=== PATIENT | male | born 1975 ===

== ENCOUNTER 2019-03-17 12:03 | Observation (INO) | payer OTHER ==
--- NOTE | 2019-03-17 12:13 | Event Note ---
ED Screening Note Date of service: 03/17/19 Time: 12:08 ED Screening Note: This is a 44 y.o. M. that presents to the ER with right sided facial numbness for 30 minutes [employer]. PMH of DM2 and HTN Denies headache, slurred speech This initial assessment/diagnostic orders/clinical plan/treatment(s) is/are subject to change based on patients health status, clinical progression and re- assessment by fellow clinical providers in the ED. Further treatment and workup at subsequent clinical providers discretion. Patient/guardian urged not to elope from the ED as their condition may be serious if not clinically assessed and managed. Initial orders include: Labs, ekg, and CT of head
--- NOTE | 2019-03-17 12:46 | Event Note ---
Date of service: 03/17/19 Face to Face: Josafat garcia Dr.: Dr. Karl Bay Past medical history: Diabetes, hypertension, high cholesterol 44-year-old gentleman, not known to this provider previously, presenting with right-sided facial numbness, now resolved, the right side V1, V2, V3 distribution. Symptoms resolved. Patient has GCS of 15. NIH score of 0. Not a TPA candidate as symptoms resolved. Exam at this point time is not consistent with large vessel occlusion. Admission is recommended by neurology for stroke workup. Aspirin ordered. Hospital team to admit patient for TIA workup. Vital Signs 03/17/19 03/17/19 12:09 13:07 Temperature 97.9 F 98.2 F Pulse Rate 83 78 Respiratory 20 17 Rate Blood Pressure 179/114 Blood Pressure 179/101 [Left] O2 Sat by Pulse 98 100 Oximetry
[2019-03-17 12:53] LABS: Basophils # (Auto) 0.1 K/mm3 (0.0-0.1); Basophils % (Auto) 1.2 % (0.0-1.8); Eosinophils # (Auto) 0.1 K/mm3 (0.0-0.4); Eosinophils % (Auto) 1.6 % (0.0-4.3); Hematocrit 49.6 % (35.5-45.6); Hemoglobin 16.9 gm/dl (11.8-15.2); Lymphocytes # (Auto) 2.3 K/mm3 (1.2-5.4); Lymphocytes % (Auto) 35.8 % (13.4-35.0); Mean Corpuscular HGB Conc 34 % (32-34); Mean Corpuscular Volume 85 fl (84-94); Monocytes # (Auto) 0.6 K/mm3 (0.0-0.8); Monocytes % (Auto) 9.1 % (0.0-7.3); Platelet Count 247 K/mm3 (140-440); Red Blood Count 5.83 M/mm3 (3.65-5.03); Red Cell Distribution Width 13.5 % (13.2-15.2)
--- NOTE | 2019-03-17 12:53 | Cat Scan Report ---
CT head/brain wo con INDICATION / CLINICAL INFORMATION: 44 years Male; MAIN: CODE STROKE #[id number] RT SIDE DROOP neuro de ficits <6hrs or sx present upon awakening. TECHNIQUE: Routine CT head without contrast. All CT scans at this location are performed using CT dos e reduction for ALARA by means of automated exposure control. COMPARISON: None. FINDINGS: BRAIN / INTRACRANIAL CONTENTS: No acute hemorrhage, mass effect, midline shift, hydrocephalus, or acu te, large territorial infarct. No chronic infarct or focal atrophy. No significant white matter abnor mality. CRANIOCERVICAL JUNCTION: No significant abnormality. ORBITS: No significant abnormality of visualized orbits. SINUSES / MASTOIDS: There is mucosal thickening in the left maxillary antrum. ADDITIONAL FINDINGS: None. IMPRESSION: 1. No focal mass, hemorrhage, hydrocephalus, or acute, large territorial infarct. This exam was performed as part of a code stroke protocol. The exam was completed on 03/17/2019 1127 AM. The exam was reviewed at 11:40 AM and nurse practitioner Narinder was notified at 11:45 AM. Signer Name: Jc Painting MD, III Signed: 03/17/2019 12:48 PM Workstation Name: [email or web address]
--- NOTE | 2019-03-17 12:54 | Emergency Department Report ---
ED Neuro Deficit HPI - General Chief Complaint: Neuro Symptoms/Deficit Stated Complaint: FACIAL NUMBNESS Time Seen by Provider: 03/17/19 12:07 Source: patient Mode of arrival: Ambulatory Limitations: No Limitations - History of Present Illness Initial Comments: [facility] Date of Service: 03/17/2019 12:17:14 Impression: RO Acute Ischemic Stroke TIA Comments: Patient reports now that his symptoms are nearly resolved, and reports no sensory loss on the exam. This is likely TIA, with differential diagnosis of small cortical infarct. Patient will need to be admitted for further care, and stroke work up as recommended below. Metrics: Last Known Well: 03/17/2019 11:23:43 [facility] Notification Time: 03/17/2019 12:16:34 Arrival Time: 03/17/2019 12:05:00 Stamp Time: 03/17/2019 12:17:14 Time First Login Attempt: 03/17/2019 12:22:00 Video Start Time: 03/17/2019 12:22:00 Symptoms: RIght face numness abot one hour before arrival NIHSS Start Assessment Time: 03/17/2019 12:25:00 Patient is not a candidate for tPA. Patient was not deemed candidate for tPA thrombolytics because of Symptoms resolved. . Video End Time: 03/17/2019 12:32:02 CT head showed no acute hemorrhage or acute core infarct. Advanced imaging was not obtained as the presentation was not suggestive of Large Vessel Occlusive Disease. ER physician notified of the decision on thrombolytics management. Our recommendations are outlined below. Recommendations: Antiplatelet Therapy Recommended Recommended Scan: MRI Head MRA Head Without Contrast Carotid Dopplers Echocardiogram - Transthoracic Echocardiogram Lipid Panel to Be Obtained, if Not Done in the Last Three Months DVT prophylaxis: SCDs, Pneumatic Compression Disposition: Follow up with Teleneurology Follow up Sign Out: Discussed with Emergency Department Provider History of Present Illness: Patient is a 44 years old Male. Patient was brought by private transportation with symptoms of RIght face numness abot one hour before arrival Patient presents with symptoms of right facial numbness which occurred about one hour before the presentation. He was brought here by private vehicle. He denies any other associated symptoms. He was asymptomatic before this and these are new symptoms for him. History of HTN, and Diabetes Mellitus. CT head showed no acute hemorrhage or acute core infarct. Last seen normal was within 4.5 hours. There is no history of hemorrhagic complications or intracranial hemorrhage. There is no history of Recent Anticoagulants. There is no history of recent major surgery. There is no history of recent stroke. Examination: 1A: Level of Consciousness - Alert; keenly responsive + 0 1B: Ask Month and Age - Both Questions Right + 0 1C: Blink Eyes & Squeeze Hands - Performs Both Tasks + 0 2: Test Horizontal Extraocular Movements - Normal + 0 3: Test Visual Ahmadi - No Visual Loss + 0 4: Test Facial Palsy (Use Grimace if Obtunded) - Normal symmetry + 0 5A: Test Left Arm Motor Drift - No Drift for 10 Seconds + 0 5B: Test Right Arm Motor Drift - No Drift for 10 Seconds + 0 6A: Test Left Leg Motor Drift - No Drift for 5 Seconds + 0 6B: Test Right Leg Motor Drift - No Drift for 5 Seconds + 0 7: Test Limb Ataxia (FNF/Heel-Lu) - No Ataxia + 0 8: Test Sensation - Normal; No sensory loss + 0 9: Test Language/Aphasia - Normal; No aphasia + 0 10: Test Dysarthria - Normal + 0 11: Test Extinction/Inattention - No abnormality + 0 NIHSS Score: 0 Patient was informed the Neurology Consult would happen via TeleHealth consult by way of interactive audio and video telecommunications and consented to receiving care in this manner. Due to the immediate potential for life-threatening deterioration due to underlying acute neurologic illness, I spent 35 minutes providing critical care. This time includes time for face to face visit via telemedicine, review of medical records, imaging studies and discussion of findings with providers, the patient and/or family. Dr Davy Savage [facility] - Related Data Allergies/Adverse Reactions: Allergies Allergy/AdvReac Type Severity Reaction Status Date / Time No Known Allergies Allergy Unverified 03/17/19 12:04 ED Review of Systems ROS: Stated complaint: FACIAL NUMBNESS Other details as noted in HPI ED Past Medical Hx - Past Medical History Hx Hypertension: Yes Hx Diabetes: Yes - Surgical History Past Surgical History?: No - Social History Smoking Status: Never Smoker Substance Use Type: None ED Neuro Physical Exam - General Limitations: No Limitations Suspected Stroke: Yes - NIHSS Assessment Interval: Baseline 1a. Level of Consciousness: alert/keenly responsive 1b. LOC Questions: answers both correctly 1c. LOC Commands: performs tasks correctly 2. Best Gaze: normal 3. Visual: no visual loss 4. Facial Palsy: normal symmetrical movement 5b. Motor Arm Right: no drift 5a. Motor Arm Left: no drift 6a. Motor Leg Left: no drift 6b. Motor Leg Right: no drift 7. Limb Ataxia: absent 8. Sensory: normal 9. Best Language: no aphasia 10. Dysarthria: normal 11. Extinction/Inattention: no abnormality Total Score: 0 Stroke Severity: No Stroke Symptoms ED Course Vital Signs 03/17/19 12:09 Temperature 97.9 F Pulse Rate 83 Respiratory 20 Rate Blood Pressure 179/114 O2 Sat by Pulse 98 Oximetry - Lab Data Lab Results 03/17/19 03/17/19 Range/Units 12:16 12:34 POC Glucose 284 H 285 H (70-105) Critical care attestation.: If time is entered above; I have spent that time in minutes in the direct care of this critically ill patient, excluding procedure time. ED Disposition Clinical Impression: Stroke Disposition: DC/TX-02 [id number]-TRM GEN HOSP IP Is pt being admited?: Yes Condition: Stable
[2019-03-17 13:08] LABS: INR 0.88 (0.87-1.13); Partial Thromboplastin Time 26.4 Sec. (24.2-36.6)
--- NOTE | 2019-03-17 13:09 | Emergency Department Report ---
ED Neuro Deficit HPI - General Chief Complaint: Neuro Symptoms/Deficit Stated Complaint: FACIAL NUMBNESS Time Seen by Provider: 03/17/19 12:07 Source: patient Mode of arrival: Ambulatory Limitations: No Limitations - History of Present Illness Initial Comments: 44-year-old female presents to the emergency room complaining of right sided facial numbness with blurred vision. Patient states this happened about 20 minutes prior to arrival [facility] was [facility]. Patient does report a past medical history of hypertension, diabetes, hypercholesterolemia and reported CVA in the past. Patient reports he is compliant and off medications. Patient reports he is followed by Dr. Karl Bay internal medicine provider. Patient reports she is not on aspirin and is not on cholesterol medication. Onset/Timin -: minutes(s) Location: right face (drooping and tingling which he reports has resolved) Presenting Symptoms: Present: Facial Droop/Numbness (right side). Absent: Weak/Paralyzed One Side, Altered Mental Status History of same: No Place: other ([facility]) Severity: mild Quality: numb, tingling Improves With: time Worsens With: none On Anticoagulants: No Context: sudden onset Associated Symptoms: denies: confusion, chest pain, cough, diaphoresis, fever/chills, headaches, loss of appetite, malise, nausea/vomiting, vertigo, seizures, shortness of breath, syncope, weakness Treatments Prior to Arrival: none - Related Data Home Medications: Home Medications Medication Instructions Recorded Confirmed Last Taken Aspirin [Aspirin BABY CHEW TAB] 81 mg PO DAILY 03/17/19 03/17/19 03/17/19 Previous Rx's Medication Instructions Recorded Last Taken Type AtorvaSTATin [Lipitor] 40 mg PO QHS #30 tablet 03/18/19 Unknown Rx Lisinopril [Zestril TAB] 5 mg PO QDAY #30 03/18/19 Unknown Rx glipiZIDE [Glucotrol] 5 mg PO BIDAC #60 tablet 03/18/19 Unknown Rx metFORMIN [Glucophage] 500 mg PO BID #60 03/18/19 Unknown Rx predniSONE [Deltasone] 80 mg PO QDAY #40 tab 03/18/19 Unknown Rx valACYclovir [Valtrex] 500 mg PO TID #30 tab 03/18/19 Unknown Rx Allergies/Adverse Reactions: Allergies Allergy/AdvReac Type Severity Reaction Status Date / Time No Known Allergies Allergy Unverified 03/17/19 12:04 ED Review of Systems ROS: Stated complaint: FACIAL NUMBNESS Other details as noted in HPI Comment: All other systems reviewed and negative ED Past Medical Hx - Past Medical History Hx Hypertension: Yes Hx Diabetes: Yes Additional medical history: Hypercholesterolemia - Surgical History Past Surgical History?: No - Social History Smoking Status: Never Smoker Substance Use Type: None - Medications Home Medications: Home Medications Medication Instructions Recorded Confirmed Last Taken Type Aspirin [Aspirin BABY CHEW TAB] 81 mg PO DAILY 03/17/19 03/17/19 03/17/19 History AtorvaSTATin [Lipitor] 40 mg PO QHS #30 tablet 03/18/19 Unknown Rx Lisinopril [Zestril TAB] 5 mg PO QDAY #30 03/18/19 Unknown Rx glipiZIDE [Glucotrol] 5 mg PO BIDAC #60 tablet 03/18/19 Unknown Rx metFORMIN [Glucophage] 500 mg PO BID #60 03/18/19 Unknown Rx predniSONE [Deltasone] 80 mg PO QDAY #40 tab 03/18/19 Unknown Rx valACYclovir [Valtrex] 500 mg PO TID #30 tab 03/18/19 Unknown Rx ED Neuro Physical Exam - General Limitations: No Limitations General appearance: alert, in no apparent distress Suspected Stroke: Yes - Head Head exam: Present: atraumatic, normocephalic - Eye Eye exam: Present: PERRL, EOMI - ENT ENT exam: Present: mucous membranes moist - Neck Neck exam: Present: normal inspection - Respiratory Respiratory exam: Present: normal lung sounds bilaterally. Absent: respiratory distress - Cardiovascular Cardiovascular Exam: Present: regular rate, normal rhythm. Absent: systolic murmur, diastolic murmur, rubs, gallop - GI/Abdominal GI/Abdominal exam: Present: soft, normal bowel sounds - Back Exam Back exam: Present: normal inspection, full ROM. Absent: tenderness - Neurological Exam Neurological exam: Present: alert, oriented X3 - NIHSS 1a. Level of Consciousness: alert/keenly responsive 1b. LOC Questions: answers both correctly 1c. LOC Commands: performs tasks correctly 2. Best Gaze: normal 3. Visual: no visual loss 4. Facial Palsy: normal symmetrical movement 5b. Motor Arm Right: no drift 5a. Motor Arm Left: no drift 6a. Motor Leg Left: no drift 6b. Motor Leg Right: no drift 7. Limb Ataxia: absent 8. Sensory: normal 9. Best Language: no aphasia 10. Dysarthria: normal 11. Extinction/Inattention: no abnormality Total Score: 0 Stroke Severity: No Stroke Symptoms - Psychiatric Psychiatric exam: Present: normal affect, normal mood - Skin Skin exam: Present: warm, dry, intact, normal color. Absent: rash ED Course Vital Signs 03/17/19 03/17/19 03/17/19 12:09 12:24 12:31 Temperature 97.9 F Pulse Rate 83 81 86 Respiratory 20 25 H Rate Blood Pressure 179/114 Blood Pressure [Left] O2 Sat by Pulse 98 Oximetry 03/17/19 03/17/19 03/17/19 12:45 13:01 13:07 Temperature 98.2 F Pulse Rate 78 72 78 Respiratory 13 19 17 Rate Blood Pressure Blood Pressure 179/101 [Left] O2 Sat by Pulse 100 98 100 Oximetry 03/17/19 03/17/19 03/17/19 13:15 13:31 13:45 Temperature Pulse Rate 74 73 75 Respiratory 18 19 18 Rate Blood Pressure Blood Pressure [Left] O2 Sat by Pulse 99 100 99 Oximetry 03/17/19 03/17/19 03/17/19 14:01 14:15 14:31 Temperature Pulse Rate 70 77 78 Respiratory 12 10 L 13 Rate Blood Pressure Blood Pressure [Left] O2 Sat by Pulse 98 99 97 Oximetry 03/17/19 03/17/19 03/17/19 14:41 14:51 15:01 Temperature Pulse Rate 74 76 72 Respiratory 13 13 8 L Rate Blood Pressure Blood Pressure [Left] O2 Sat by Pulse 99 98 98 Oximetry 03/17/19 03/17/19 03/17/19 15:11 15:21 15:31 Temperature Pulse Rate 75 74 76 Respiratory 13 9 L 14 Rate Blood Pressure Blood Pressure [Left] O2 Sat by Pulse 97 100 98 Oximetry 03/17/19 03/17/19 03/17/19 15:41 15:51 16:01 Temperature Pulse Rate 72 78 70 Respiratory 21 13 13 Rate Blood Pressure Blood Pressure [Left] O2 Sat by Pulse 98 98 97 Oximetry 03/17/19 03/17/19 03/17/19 16:11 16:21 16:31 Temperature Pulse Rate 72 70 71 Respiratory 18 16 16 Rate Blood Pressure Blood Pressure [Left] O2 Sat by Pulse 98 98 95 Oximetry 03/17/19 03/17/19 03/17/19 16:40 16:51 17:01 Temperature Pulse Rate 83 82 76 Respiratory 15 17 11 L Rate Blood Pressure Blood Pressure [Left] O2 Sat by Pulse 98 98 96 Oximetry 03/17/19 17:11 Temperature Pulse Rate 75 Respiratory 9 L Rate Blood Pressure Blood Pressure [Left] O2 Sat by Pulse 99 Oximetry - Lab Data Result diagrams: 03/17/19 12:38 03/17/19 12:38 Lab Results 03/17/19 03/17/19 03/17/19 Range/Units 12:16 12:34 12:38 WBC 6.5 (4.5-11.0) K/mm3 RBC 5.83 H (3.65-5.03) M/mm3 Hgb 16.9 H (11.8-15.2) gm/dl Hct 49.6 H (35.5-45.6) % MCV 85 (84-94) fl MCH 29 (28-32) pg MCHC 34 (32-34) % RDW 13.5 (13.2-15.2) % Plt Count 247 (140-440) K/mm3 Lymph % (Auto) 35.8 H (13.4-35.0) % Wharton % (Auto) 9.1 H (0.0-7.3) % Eos % (Auto) 1.6 (0.0-4.3) % Baso % (Auto) 1.2 (0.0-1.8) % Lymph # 2.3 (1.2-5.4) K/mm3 Wharton # 0.6 (0.0-0.8) K/mm3 Eos # 0.1 (0.0-0.4) K/mm3 Baso # 0.1 (0.0-0.1) K/mm3 Seg Neutrophils % 52.3 (40.0-70.0) % Seg Neutrophils # 3.4 (1.8-7.7) K/mm3 PT (12.2-14.9) Sec. INR (0.87-1.13) APTT (24.2-36.6) Sec. Thrombin Time (15.1-19.6) Sec. Sodium (137-145) mmol/L Potassium (3.6-5.0) mmol/L Chloride (98-107) mmol/L Carbon Dioxide (22-30) mmol/L Anion Gap mmol/L BUN (9-20) mg/dL Creatinine (0.8-1.5) mg/dL Estimated GFR ml/min BUN/Creatinine Ratio % Glucose (75-100) mg/dL POC Glucose 284 H 285 H (70-105) Calcium (8.4-10.2) mg/dL Troponin T (0.00-0.029) ng/mL Triglycerides (2-149) mg/dL Cholesterol (50-199) mg/dL LDL Cholesterol Direct (50-130) mg/dL HDL Cholesterol (40-59) mg/dL Cholesterol/HDL Ratio % 03/17/19 03/17/19 03/17/19 Range/Units 12:38 12:38 12:38 WBC (4.5-11.0) K/mm3 RBC (3.65-5.03) M/mm3 Hgb (11.8-15.2) gm/dl Hct (35.5-45.6) % MCV (84-94) fl MCH (28-32) pg MCHC (32-34) % RDW (13.2-15.2) % Plt Count (140-440) K/mm3 Lymph % (Auto) (13.4-35.0) % Wharton % (Auto) (0.0-7.3) % Eos % (Auto) (0.0-4.3) % Baso % (Auto) (0.0-1.8) % Lymph # (1.2-5.4) K/mm3 Wharton # (0.0-0.8) K/mm3 Eos # (0.0-0.4) K/mm3 Baso # (0.0-0.1) K/mm3 Seg Neutrophils % (40.0-70.0) % Seg Neutrophils # (1.8-7.7) K/mm3 PT 11.7 L (12.2-14.9) Sec. INR 0.88 (0.87-1.13) APTT 26.4 (24.2-36.6) Sec. Thrombin Time 16.2 (15.1-19.6) Sec. Sodium 137 (137-145) mmol/L Potassium 3.7 (3.6-5.0) mmol/L Chloride 98.1 (98-107) mmol/L Carbon Dioxide 23 (22-30) mmol/L Anion Gap 20 mmol/L BUN 15 (9-20) mg/dL Creatinine 0.7 L (0.8-1.5) mg/dL Estimated GFR > 60 ml/min BUN/Creatinine Ratio 21 % Glucose 281 H (75-100) mg/dL POC Glucose (70-105) Calcium 9.4 (8.4-10.2) mg/dL Troponin T < 0.010 (0.00-0.029) ng/mL Triglycerides (2-149) mg/dL Cholesterol (50-199) mg/dL LDL Cholesterol Direct (50-130) mg/dL HDL Cholesterol (40-59) mg/dL Cholesterol/HDL Ratio % 03/17/ Range/Units 14:23 WBC (4.5-11.0) K/mm3 RBC (3.65-5.03) M/mm3 Hgb (11.8-15.2) gm/dl Hct (35.5-45.6) % MCV (84-94) fl MCH (28-32) pg MCHC (32-34) % RDW (13.2-15.2) % Plt Count (140-440) K/mm3 Lymph % (Auto) (13.4-35.0) % Wharton % (Auto) (0.0-7.3) % Eos % (Auto) (0.0-4.3) % Baso % (Auto) (0.0-1.8) % Lymph # (1.2-5.4) K/mm3 Wharton # (0.0-0.8) K/mm3 Eos # (0.0-0.4) K/mm3 Baso # (0.0-0.1) K/mm3 Seg Neutrophils % (40.0-70.0) % Seg Neutrophils # (1.8-7.7) K/mm3 PT (12.2-14.9) Sec. INR (0.87-1.13) APTT (24.2-36.6) Sec. Thrombin Time (15.1-19.6) Sec. Sodium (137-145) mmol/L Potassium (3.6-5.0) mmol/L Chloride (98-107) mmol/L Carbon Dioxide (22-30) mmol/L Anion Gap mmol/L BUN (9-20) mg/dL Creatinine (0.8-1.5) mg/dL Estimated GFR ml/min BUN/Creatinine Ratio % Glucose (75-100) mg/dL POC Glucose (70-105) Calcium (8.4-10.2) mg/dL Troponin T (0.00-0.029) ng/mL Triglycerides 179 H (2-149) mg/dL Cholesterol 243 H (50-199) mg/dL LDL Cholesterol Direct 178 H (50-130) mg/dL HDL Cholesterol 50 (40-59) mg/dL Cholesterol/HDL Ratio 4.86 % - Radiology Data Radiology results: report reviewed Patient: CAMILA LAZARO MR #: [id number] : 1975 Acct:[id number] Age/Sex: 44 / M ADM Date: 03/17/19 Loc: ED Attending Dr: Ordering Physician: GENESIS RON Date of Service: 03/17/19 Procedure(s): CT head/brain wo con Accession Number(s): [id number] cc: GENESIS RON CT head/brain wo con INDICATION / CLINICAL INFORMATION: 44 years Male; MAIN: CODE STROKE #[id number] RT SIDE DROOP neuro deficits <6hrs or sx present upon awakening. TECHNIQUE: Routine CT head without contrast. All CT scans at this location are performed using CT dose reduction for ALARA by means of automated exposure control. COMPARISON: None. FINDINGS: BRAIN / INTRACRANIAL CONTENTS: No acute hemorrhage, mass effect, midline shift, hydrocephalus, or acute, large territorial infarct. No chronic infarct or focal atrophy. No significant white matter abnormality. CRANIOCERVICAL JUNCTION: No significant abnormality. ORBITS: No significant abnormality of visualized orbits. SINUSES / MASTOIDS: There is mucosal thickening in the left maxillary antrum. ADDITIONAL FINDINGS: None. IMPRESSION: 1. No focal mass, hemorrhage, hydrocephalus, or acute, large territorial infarct. This exam was performed as part of a code stroke protocol. The exam was completed on 03/17/2019 1127 AM. The exam was reviewed at 11:40 AM and nurse practitioner Narinder was notified at 11:45 AM. Signer Name: Jc Painting MD, III Signed: 03/17/2019 12:48 PM Workstation Name: [email or web address] Transcribed By: HR Dictated By: Jc Painting MD Electronically Authenticated By: Jc Painting MD Signed Date/Time: 03/17/198 DD/ TD/TT: - Medical Decision Making 44-year-old female presents to the emergency room complaining of right sided facial numbness with blurred vision. Patient states this happened about 20 minutes prior to arrival [facility]. Patient does report a past medical history of hypertension, diabetes, hypercholesterolemia and reported CVA in the past. Patient reports he is compliant and off medications. Patient reports he is followed by Dr. Karl Bay internal medicine provider. Patient reports she is not on aspirin and is not on cholesterol medication. Spoke with Dr. Savage he called to report normal CT head. He request admission for TIA work. Reports possible small cortical vascular stroke verses TIA. No concerns for large vessel occlusion. Dr. Clarke evaluated patient. Spoke with Dr. Patel hospitalist for admission. - Differential Diagnosis CVA, bells palsy, - Thrombolytic Inclusion/Exclusion Thrombolytic Inclusion Criteria: Ischemic Stroke Onset< 3h, Negative CT Scan for ICH Thrombolytic Contraindications: Rapidily Improving s/s Critical Care Time: Yes Critical care time in (mins) excluding proc time.: 35 Critical care attestation.: If time is entered above; I have spent that time in minutes in the direct care of this critically ill patient, excluding procedure time. ED Disposition Clinical Impression: Stroke Qualifiers: Laterality of affected vessel: unspecified Disposition: DC-09 OP ADMIT IP TO THIS HOSP Is pt being admited?: Yes Does the pt Need Aspirin: Yes Condition: Stable
[2019-03-17] MEDS ORDERED: ASPIRIN 81 MG TAB CHEW PO ONE (13:14)
[2019-03-17 13:36] LABS: BUN/Creatinine Ratio 21; Blood Urea Nitrogen 15 mg/dL (9-20); Calcium 9.4 mg/dL (8.4-10.2); Hemolysis Index 3
--- NOTE | 2019-03-17 14:08 | History and Physical Report ---
History of Present Illness Chief complaint: The right side of my face is numb History of present illness: 44 YO Male with Obesity, HTN, HLD, DM presents to ED for evaluation. Pt states that he was in his usual state of health today wend he experienced sudden onset of Fight facial numbness and blurred vision while attending catholic. Pt presents to ED for evaluation 20minutes after onset of symptoms. A code stroke was c alled, and teleneurology consulted. Pt deemed not to be a candidate for TPA. Pt seen and evaluated in ED and found to have symptoms consistent with TIA/CVA as well as [place] Palsy. Pt placed in Observation status. Neurology consulted. Pt denies fever, chills, CP, palpitations, NVD, Truma, Syncope, Vertigo, Loss of consciousness, Loss of bowel/bladder continence, or seizures. No prior admission for review. No medication listed for reconciliation at time of admission. Past History Past Medical History: other (see hpi) Past Surgical History: No surgical history, Other (reviewed) Social history: , lives with family. denies: smoking, alcohol abuse, prescription drug abuse Family history: diabetes, hypertension Medications and Allergies Allergies Allergy/AdvReac Type Severity Reaction Status Date / Time No Known Allergies Allergy Unverified 03/17/19 12:04 Review of Systems Constitutional: no weight loss, no weight gain, no fever, no chills Eyes: right: blurred vision Ears, nose, mouth and throat: no ear pain, no ear discharge, no tinnitis, no decreased hearing, no nose pain, no nasal congestion Cardiovascular: no chest pain, no orthopnea, no palpitations, no rapid/irregular heart beat, no edema, no syncope Respiratory: no cough, no cough with sputum, no excessive sputum, no hemoptysis, no shortness of breath Gastrointestinal: no nausea, no vomiting, no diarrhea, no constipation Genitourinary Male: no dysuria, no hematuria, no flank pain, no discharge, no urinary frequency, no urinary hesitancy Rectal: no pain, no incontinence, no bleeding Musculoskeletal: no neck stiffness, no neck pain, no shooting arm pain, no arm numbness/tingling, no low back pain, no shooting leg pain, no leg numbness/tingling Integumentary: no rash, no pruritis, no redness, no sores, no wounds Neurological: weakness, numbness, no vertigo, no headaches, no memory loss Psychiatric: no anxiety, no memory loss, no change in sleep habits, no sleep disturbances, no insomnia, no hypersomnia, no change in appetite, no change in libido Endocrine: no cold intolerance, no heat intolerance, no polyphagia, no excessive thirst, no polydipsia, no polyuria, no nocturia, no excessive sweating Hematologic/Lymphatic: no easy bruising, no easy bleeding, no lymphadenopathy, no lymphedema Allergic/Immunologic: no urticaria, no allergic rhinitis, no persistent infections, no anaphylaxis Exam - Constitutional Vitals: Temp Pulse Resp BP Pulse Ox 98.2 F 78 17 179/101 100 03/17/19 13:07 03/17/19 13:07 03/17/19 13:07 03/17/19 13:07 03/17/19 13:07 General appearance: Present: no acute distress, well-nourished - EENT Eyes: Present: PERRL ENT: hearing intact, clear oral mucosa - Neck Neck: Present: supple, normal ROM - Respiratory Respiratory effort: normal Respiratory: bilateral: CTA - Cardiovascular Heart Sounds: Present: S1 & S2. Absent: rub, click - Extremities Extremities: pulses symmetrical, No edema Peripheral Pulses: within normal limits - Abdominal General gastrointestinal: Present: soft, non-tender, non-distended, normal bowel sounds Male genitourinary: Present: normal - Integumentary Integumentary: Present: clear, warm, dry - Musculoskeletal Musculoskeletal: right sided weakness - Psychiatric Psychiatric: appropriate mood/affect, intact judgment & insight - Neurologic Neurologic: CNII-XII intact, moves all extremities Results - Labs CBC & Chem 7: 03/17/19 12:38 03/17/19 12:38 Labs: Abnormal lab results 03/17/19 03/17/19 03/17/19 Range/Units 12:16 12:34 12:38 RBC 5.83 H (3.65-5.03) M/mm3 Hgb 16.9 H (11.8-15.2) gm/dl Hct 49.6 H (35.5-45.6) % Lymph % (Auto) 35.8 H (13.4-35.0) % [place] % (Auto) 9.1 H (0.0-7.3) % PT (12.2-14.9) Sec. Creatinine (0.8-1.5) mg/dL Glucose (75-100) mg/dL POC Glucose 284 H 285 H (70-105) 03/17/19 03/17/19 Range/Units 12:38 12:38 RBC (3.65-5.03) M/mm3 Hgb (11.8-15.2) gm/dl Hct (35.5-45.6) % Lymph % (Auto) (13.4-35.0) % [place] % (Auto) (0.0-7.3) % PT 11.7 L (12.2-14.9) Sec. Creatinine 0.7 L (0.8-1.5) mg/dL Glucose 281 H (75-100) mg/dL POC Glucose (70-105) Assessment and Plan - Patient Problems (1) CVA (cerebral vascular accident) Status: Acute Qualifiers: Laterality of affected vessel: unspecified Plan to address problem: CVA Protocol: Teleneurology consulted by ED staff, CT Head, neuro check, PT/OT/Speech Therapy, lipid panel, statin therapy, antiplatelet therapy, Echo, carotid doppler (2) Tang's palsy Status: Acute Plan to address problem: Oral steroid therapy, supportive care. (3) HTN (hypertension) Status: Acute Qualifiers: Hypertension type: essential hypertension Qualified Code(s): I10 - Essential (primary) hypertension Plan to address problem: monitor bp q shift, supportive care. (4) HLD (hyperlipidemia) Status: Acute Qualifiers: Hyperlipidemia type: mixed hyperlipidemia Qualified Code(s): E78.2 - Mixed hyperlipidemia Plan to address problem: lipid panel, statin therapy, risk factor reduction, low cholesterol diet (5) Diabetes Status: Acute Plan to address problem: ADA diet, insulin sliding scale, accu check, hypoglycemia protocol (6) DVT prophylaxis Status: Acute Plan to address problem: SCD to BLE while in bed, Pt ambulatory
[2019-03-17] MEDS ORDERED: ASPIRIN 325 MG TAB PO ONE (14:36)
[2019-03-17 15:00] LABS: Chol/HDL Ratio 4.86 %
[2019-03-17] MEDS ORDERED: METOCLOPRAMIDE 10 MG TAB PO PRN (15:16)
[2019-03-17] MEDS ORDERED: ONDANSETRON 4 MG/2 ML INJ IV PRN (15:16)
[2019-03-17] MEDS ORDERED: MAGNESIUM HYDROXIDE (MOM) ORAL LIQD UDC PO PRN (15:16)
[2019-03-17] MEDS ORDERED: ALBUTEROL 2.5 MG/3 ML NEBU IH PRN (15:16)
[2019-03-17] MEDS ORDERED: BISACODYL 10 MG RECT SUPP PR PRN (15:16)
[2019-03-17] MEDS ORDERED: ACETAMINOPHEN 325 MG TAB PO PRN (15:16)
[2019-03-17] MEDS ORDERED: PROMETHAZINE 25 MG RECT SUPP PR PRN (15:16)
[2019-03-17] MEDS ORDERED: DEXTROSE 50% IN WATER (25GM) 50 ML SYRINGE IV PRN (15:20)
[2019-03-17] MEDS ORDERED: methylPREDNISolone Sod Succinate 40 MG/1 ML INJ ONE (16:34)
[2019-03-17] MEDS: methylPREDNISolone Sod Succinate 40 MG/1 ML INJ IV SCH (16:44)
[2019-03-17] MEDS: INSULIN LISPRO 100 UNIT/ML SUB-Q SCH (18:44)
[2019-03-18] MEDS: INSULIN LISPRO 100 UNIT/ML SUB-Q SCH ×2 (00:21→07:54)
[2019-03-18] MEDS ORDERED: LISINOPRIL 5 MG TAB PO SCH (10:00)
[2019-03-18] MEDS ORDERED: ASPIRIN 325 MG TAB PO SCH (10:00)
[2019-03-18] MEDS ORDERED: ASPIRIN 81 MG TAB CHEW PO SCH (10:00)
--- NOTE | 2019-03-18 10:31 | Progress Note ---
Assessment and Plan Assessment and plan: There [id number] man who presents to the hospital right-sided facial numbness which resolved after 30 minutes with no specific intervention. Past medical history; hypertension, diabetes, hyperlipidemia and history of previous CVA CT head no acute findings Right facial numbness x30 minutes Possible TIA? Telemetry neurology input appreciated, they recommend MRI MRA head, carotid Dopplers and echo. Lipid panel. Acute CVA , neurology consult pending Allow permissive hypertension, has received aspirin, stroke education, observe for arrhythmia on telemetry --aspirin and high dose statin, lipid panel shows total cholesterol of 243, triglycerides of 179 and LDL of 178. Lipids uncontrolled, put on high-dose statin Diabetes with persistent hyperglycemia Consistent carbohydrate diet, sliding scale insulin, check A1c, add basal insulin, continue metformin Hypertension, hyperlipidemia Optimize meds DVT prophylaxis, SCDs, early ambulation History Interval history: Review of systems Constitutional: No fevers, no malaise, no joint pains CVS: No chest pain, no orthopnea, no pedal edema GI: No abdominal pain, no diarrhea, no vomiting, no constipation Respiratory: No shortness of breath, no wheezing, no coughing Hospitalist Physical - Physical exam Narrative exam: General.: Appears well, no distress, nontoxic HEENT: Moist mucous membranes, extraocular muscles intact, no lymphadenopathy Neck: supple Cardiac: S1-S2 heard Lungs: clear to auscultation bilaterally Abdomen: soft , nontender, nondistended, bowel sounds positive Extremities: no edema clubbing or cyanosis Skin: no rash or lesions Neurologic: no gross focal deficits Psych: calm, and cooperative - Constitutional Vitals: Temp Pulse Resp BP Pulse Ox 97.9 F 77 18 113/85 97 03/18/19 06:00 03/18/19 06:00 03/18/19 06:00 03/18/19 06:00 03/18/19 08:39 General appearance: Present: no acute distress, well-nourished Results - Labs CBC & Chem 7: 03/17/19 12:38 03/17/19 12:38 Labs: Laboratory Last Values WBC 6.5 K/mm3 (4.5-11.0) 03/17/19 12:38 RBC 5.83 M/mm3 (3.65-5.03) H 03/17/19 12:38 Hgb 16.9 gm/dl (11.8-15.2) H 03/17/19 12:38 Hct 49.6 % (35.5-45.6) H 03/17/19 12:38 MCV 85 fl (84-94) 03/17/19 12:38 MCH 29 pg (28-32) 03/17/19 12:38 MCHC 34 % (32-34) 03/17/19 12:38 RDW 13.5 % (13.2-15.2) 03/17/19 12:38 Plt Count 247 K/mm3 (140-440) 03/17/19 12:38 Lymph % (Auto) 35.8 % (13.4-35.0) H 03/17/19 12:38 [place] % (Auto) 9.1 % (0.0-7.3) H 03/17/19 12:38 Eos % (Auto) 1.6 % (0.0-4.3) 03/17/19 12:38 Baso % (Auto) 1.2 % (0.0-1.8) 03/17/19 12:38 Lymph # 2.3 K/mm3 (1.2-5.4) 03/17/19 12:38 Alexander # 0.6 K/mm3 (0.0-0.8) 03/17/19 12:38 Eos # 0.1 K/mm3 (0.0-0.4) 03/17/19 12:38 Baso # 0.1 K/mm3 (0.0-0.1) 03/17/19 12:38 Seg Neutrophils % 52.3 % (40.0-70.0) 03/17/19 12:38 Seg Neutrophils # 3.4 K/mm3 (1.8-7.7) 03/17/19 12:38 PT 11.7 Sec. (12.2-14.9) L 03/17/19 12:38 INR 0.88 (0.87-1.13) 03/17/19 12:38 APTT 26.4 Sec. (24.2-36.6) 03/17/19 12:38 Thrombin Time 16.2 Sec. (15.1-19.6) 03/17/19 12:38 Sodium 137 mmol/L (137-145) 03/17/19 12:38 Potassium 3.7 mmol/L (3.6-5.0) 03/17/19 12:38 Chloride 98.1 mmol/L (98-107) 03/17/19 12:38 Carbon Dioxide 23 mmol/L (22-30) 03/17/19 12:38 Anion Gap 20 mmol/L 03/17/19 12:38 BUN 15 mg/dL (9-20) 03/17/19 12:38 Creatinine 0.7 mg/dL (0.8-1.5) L 03/17/19 12:38 Estimated GFR > 60 ml/min 03/17/19 12:38 BUN/Creatinine Ratio 21 % 03/17/19 12:38 Glucose 281 mg/dL (75-100) H 03/17/19 12:38 POC Glucose 234 (70-105) H 03/18/19 06:11 Calcium 9.4 mg/dL (8.4-10.2) 03/17/19 12:38 Troponin T < 0.010 ng/mL (0.00-0.029) 03/17/19 12:38 Triglycerides 179 mg/dL (2-149) H 03/17/19 14:23 Cholesterol 243 mg/dL (50-199) H 03/17/19 14:23 LDL Cholesterol Direct 178 mg/dL (50-130) H 03/17/19 14:23 HDL Cholesterol 50 mg/dL (40-59) 03/17/19 14:23 Cholesterol/HDL Ratio 4.86 % 03/17/19 14:23 Active Medications - Current Medications Current Medications: Generic Name Dose Route Start Last Admin Trade Name Freq PRN Reason Stop Dose Admin Acetaminophen 650 mg 03/17/19 15:16 Tylenol PO Q4H PRN Pain, Mild (1-3) Albuterol 2.5 mg 03/17/19 15:16 Proventil IH Q3H PRN Shortness Of Breath Aspirin 325 mg 03/18/19 10:00 Aspirin PO QDAY HAWA Aspirin 81 mg 03/18/19 10:00 Baby Aspirin PO DAILY HAWA Atorvastatin Calcium 40 mg 03/17/19 22:00 03/17/19 22:20 Lipitor PO 40 mg QHS [place]WA Administration Bisacodyl 10 mg 03/17/19 15:16 Dulcolax [place] QDAY PRN Constipation Dextrose 50 ml 03/17/19 15:20 D50w (25gm) Syringe IV Q30MIN PRN Hypoglycemia Insulin Human Lispro 0 unit 03/17/19 18:00 03/18/19 07:54 Humalog SUB-Q 3 unit Q6HR HAWA Administration Protocol Lisinopril 5 mg 03/18/19 10:00 Zestril PO QDAY [place] Magnesium Hydroxide 30 ml 03/17/19 15:16 Milk Of Magnesia PO Q4H PRN Constipation Methylprednisolone Sodium Succinate 40 mg 03/17/19 16:00 03/17/19 16:44 Solu-Medrol IV 40 mg Q24H [place]WA Administration Metoclopramide HCl 10 mg 03/17/19 15:16 Reglan PO Q6H PRN Nausea And Vomiting Ondansetron HCl 4 mg 03/17/19 15:16 Zofran IV Q8H PRN Nausea And Vomiting Promethazine HCl 25 mg 03/17/19 15:16 Phenergan [place] Q6H PRN Nausea And Vomiting Sodium Chloride 10 ml 03/17/19 15:16 Sodium Chloride Flush Syringe 10 Ml IV PRN PRN LINE FLUSH
[2019-03-18] MEDS ORDERED: INSULIN LISPRO 100 UNIT/ML SUB-Q SCH (11:30)
[2019-03-18] MEDS ORDERED: LINAGLIPTIN 5 MG TAB PO SCH (12:00)
[2019-03-18] MEDS ORDERED: metFORMIN 500 MG TAB PO SCH (12:00)
[2019-03-18] MEDS ORDERED: LORazepam 2 MG/ML VIAL IV ONE (13:30)
--- NOTE | 2019-03-18 13:50 | Magnetic Resonance Report ---
MRI BRAIN WITHOUT CONTRAST, MRA HEAD WITHOUT CONTRAST INDICATION / CLINICAL INFORMATION: cva. Patient symptoms include right facial numbness. TECHNIQUE: Multiplanar, multi sequential MRI images of the brain. Routine MRA of the head is performed. 3-D/MIP reformats postprocessed. COMPARISON: None available. FINDINGS: MR BRAIN: BRAIN / INTRACRANIAL CONTENTS: No acute ischemia, acute hemorrhage, mass effect, midline shift, or hy drocephalus. No chronic infarct or significant atrophy. No significant demyelinating changes. CRANIOCERVICAL JUNCTION: No significant abnormality. VASCULAR FLOW-VOIDS: No significant abnormality. ORBITS: No significant abnormality of visualized orbits. SINUSES / MASTOIDS: No significant abnormality of visualized sinuses and mastoid air cells. ADDITIONAL FINDINGS: None. MRA HEAD: Intracranial vertebral arteries: No significant abnormality. Basilar artery: No significant abnormality. Posterior cerebral arteries: There is origin right posterior cerebral artery. Intracranial internal carotid arteries: No significant abnormality. 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 Middle cerebral arteries: No significant abnormality. Additional findings: None. IMPRESSION: 1. No acute infarct or other acute intracranial abnormality. 2. No significant arterial stenosis or large vessel occlusion in the intracranial arteries. Signer Name: Lenin Flannery MD Signed: 03/18/2019 1:46 PM Workstation Name: [id number]
--- NOTE | 2019-03-18 14:16 | Vascular Lab Report ---
"DUPLEX DOPPLER ULTRASOUND CAROTID, BILATERAL INDICATION: stroke. FINDINGS: RIGHT CAROTID: Mild plaque Right CCA velocity: 82 cm/sec. Right ICA peak systolic velocity: 74 cm/sec. ICA/CCA PSV Ratio: 0.9. Right Vertebral Artery: Antegrade flow. LEFT CAROTID: Mild plaque Left CCA velocity: 100 cm/sec. Left ICA peak systolic velocity: 90 cm/sec. ICA/CCA PSV Ratio: 0.9. Left Vertebral Artery: Antegrade flow. IMPRESSION: 1. Right Internal Carotid Artery: Less than 50% diameter stenosis. 2. Left Internal Carotid Artery: Less than 50% diameter stenosis. Velocity criteria are extrapolated from diameter data as defined by the Society of Radiologists in Ul trasound Consensus Conference, Radiology 2003; 229;340-346. Degree of Stenosis (%) || ICA PSV (cm/sec) || Plaque estimate (%) || ICA/CCA PSV Ratio Normal <125 None <2.0 <50 <125 <50 <2.0 50-69 125-230 50 2.0-4.0 70 but less than 100 >230 50 >4.0 Near occlusion High, low, or none visible variable Total occlusion None visible; no lumen N/A Signer Name: Jorge Chauhan MD Signed: 03/18/2019 2:11 PM Workstation Name: [id number]"
--- NOTE | 2019-03-18 15:38 | Discharge Summary ---
Providers - Providers Date of Admission: 03/17/19 15:16 Attending physician: VINCE ESTRELLA MD 03/17/19 15:17 Occupational Therapy Evaluate and Treat [CONS] Routine Comment: Reason For Exam: Neuro deficits Physical Therapy Evaluation and Treat [CONS] Routine Comment: Reason For Exam: Neuro deficits Speech Therapy Evaluation and Treat [CONS] Routine Reason For Exam: swallow eval 03/17/19 20:33 Consult to Physician [CONS] Routine Comment: Consulting Provider: ADIS DURANT Physician Instructions: Reason For Exam: cva/bells palsy 03/18/19 10:33 Consult to Dietitian/Nutrition [CONS] Routine Physician Instructions: Reason For Exam: Reason for Consult: Diet education Primary care physician: BELGICA NAIDU Hospitalization Condition: Stable Hospital course: There [id number] man who presents to the hospital right-sided facial numbness which resolved after 30 minutes with no specific intervention. Past medical history; hypertension, diabetes, hyperlipidemia and history of previous CVA CT head no acute findings [place] palsy MR brain neg, dw neurologist put on steroid and valtrex Elevated LDL and total cholesterol, put on high dose statin Diabetes with persistent hyperglycemia started on oral DM meds, a1c was 10, needs to fup with his PCP for better control Hypertension, hyperlipidemia Optimize meds DVT prophylaxis, SCDs, early ambulation Preventative health counseling performed for 17 minutes Disposition: DC-01 TO HOME OR SELFCARE Time spent for discharge: 33 mins Core Measure Documentation - Palliative Care Palliative Care/ Comfort Measures: Not Applicable - Core Measures Any of the following diagnoses?: none Exam - Constitutional Vitals: Temp Pulse Resp BP Pulse Ox 97.9 F 77 18 113/85 97 03/18/19 06:00 03/18/19 06:00 03/18/19 06:00 03/18/19 06:00 03/18/19 08:39 General appearance: Present: no acute distress, well-nourished - EENT Eyes: Present: PERRL ENT: hearing intact, clear oral mucosa - Neck Neck: Present: supple, normal ROM - Respiratory Respiratory effort: normal Respiratory: bilateral: CTA - Cardiovascular Heart Sounds: Present: S1 & S2. Absent: rub, click - Extremities Extremities: pulses symmetrical, No edema Peripheral Pulses: within normal limits - Abdominal General gastrointestinal: Present: soft, non-tender, non-distended, normal bowel sounds Male genitourinary: Present: normal - Integumentary Integumentary: Present: clear, warm, dry - Musculoskeletal Musculoskeletal: gait normal, strength equal bilaterally - Psychiatric Psychiatric: appropriate mood/affect, intact judgment & insight - Neurologic Neurologic: CNII-XII intact, focal deficits (R sided facial weakness), moves all extremities Plan Follow up with: BELGICA NAIDU MD [Primary Care Provider] - 7 Days Forms: Accompanied Note Prescriptions: AtorvaSTATin [Lipitor] 40 mg PO QHS #30 tablet predniSONE [Deltasone] 80 mg PO QDAY #40 tab metFORMIN [Glucophage] 500 mg PO BID #60 glipiZIDE [Glucotrol] 5 mg PO BIDAC #60 tablet valACYclovir [Valtrex] 500 mg PO TID #30 tab Lisinopril [Zestril TAB] 5 mg PO QDAY #30
[2019-03-18] MEDS: methylPREDNISolone Sod Succinate 40 MG/1 ML INJ IV SCH (16:59)
[2019-03-18 17:50] VITALS: BP 125/84
--- NOTE | 2019-03-18 18:31 | Consultation ---
History of Present Illness Consult date: 03/18/19 Reason for Consult: Right facial weakness Chief complaint: Right facial weakness History of present illness: Patient is a 44 y/o man w/ a h/o HTN, HLD, DM. He p/w Rt. facial weakness which began on 03/17/19, and has not resolved since onset. Patient first noted symptoms yesterday morning, and came to [facility] for further evaluation. Patient is compliant with ASA at home. He states that he did not have any significant nu mbness, but experienced more weakness of Rt. face, upper and lower portions. He has noted some increased secretions coming from his right eye, and that liquids tend to spill from the right side of his mouth. Past History Past Medical History: other (see hpi) Past Surgical History: No surgical history, Other (reviewed) Social history: , lives with family. denies: smoking, alcohol abuse, prescription drug abuse Family history: diabetes, hypertension Medications and Allergies Allergies Allergy/AdvReac Type Severity Reaction Status Date / Time No Known Allergies Allergy Unverified 03/17/19 12:04 Home Medications Medication Instructions Recorded Confirmed Last Taken Type Aspirin [Aspirin BABY CHEW TAB] 81 mg PO DAILY 03/17/19 03/17/19 03/17/19 History AtorvaSTATin [Lipitor] 40 mg PO QHS #30 tablet 03/18/19 Unknown Rx Lisinopril [Zestril TAB] 5 mg PO QDAY #30 03/18/19 Unknown Rx glipiZIDE [Glucotrol] 5 mg PO BIDAC #60 tablet 03/18/19 Unknown Rx metFORMIN [Glucophage] 500 mg PO BID #60 03/18/19 Unknown Rx predniSONE [Deltasone] 80 mg PO QDAY #40 tab 03/18/19 Unknown Rx valACYclovir [Valtrex] 500 mg PO TID #30 tab 03/18/19 Unknown Rx Active Meds: Active Medications Acetaminophen (Tylenol) 650 mg PO Q4H PRN PRN Reason: Pain, Mild (1-3) Albuterol (Proventil) 2.5 mg IH Q3H PRN PRN Reason: Shortness Of Breath Aspirin (Baby Aspirin) 81 mg PO DAILY [facility] Last Admin: 03/18/19 14:07 Dose: 81 mg Documented by: Atorvastatin Calcium (Lipitor) 40 mg PO QHS [facility] Last Admin: 03/17/19 22:20 Dose: 40 mg Documented by: Bisacodyl (Dulcolax) 10 mg [place] QDAY PRN PRN Reason: Constipation Dextrose (D50w (25gm) Syringe) 50 ml IV Q30MIN PRN PRN Reason: Hypoglycemia Insulin Glargine (Lantus) 15 units SUB-Q QHS [facility] Insulin Human Lispro (Humalog) 0 unit SUB-Q ACHS [facility]; Protocol Last Admin: 03/18/19 11:30 Dose: Not Given Documented by: Linagliptin (Tradjenta) 5 mg PO QDDIAB [facility] Last Admin: 03/18/19 12:00 Dose: 5 mg Documented by: Lisinopril (Zestril) 5 mg PO QDAY [facility] Last Admin: 03/18/19 14:06 Dose: 5 mg Documented by: Magnesium Hydroxide (Milk Of Magnesia) 30 ml PO Q4H PRN PRN Reason: Constipation Metformin HCl (Glucophage) 500 mg PO QDDIAB [facility] Last Admin: 03/18/19 12:00 Dose: 500 mg Documented by: Methylprednisolone Sodium Succinate (Solu-Medrol) 40 mg IV Q24H [facility] Last Admin: 03/18/19 16:59 Dose: 40 mg Documented by: Metoclopramide HCl (Reglan) 10 mg PO Q6H PRN PRN Reason: Nausea And Vomiting Ondansetron HCl (Zofran) 4 mg IV Q8H PRN PRN Reason: Nausea And Vomiting Promethazine HCl (Phenergan) 25 mg [place] Q6H PRN PRN Reason: Nausea And Vomiting Sodium Chloride (Sodium Chloride Flush Syringe 10 Ml) 10 ml IV PRN PRN PRN Reason: LINE FLUSH Review of Systems All systems: negative Neurological: weakness Physical Examination - Vital Signs Vital Signs: Vital Signs Temp Pulse Resp BP Pulse Ox 97.9 F 83 20 179/114 98 03/17/19 12:09 03/17/19 12:09 03/17/19 12:09 03/17/19 12:09 03/17/19 12:09 - Physical Exam Narrative exam: Patient is alert, awake, oriented x4, follows complex commands. He is noted to have weakness of Rt. upper and lower parts of face. EOMI, PERRL, b/l intact to LT, tongue midline. No dysarthria or aphasia. 5/5 in all extremities. B/l intact to LT. B/l intact to FTN and HTS. 2+ reflexes throughout. - Constitutional General appearance: comfortable - EENT EENT: Present: ATNC, PERRL, mucous membranes moist, hearing intact, vision intact - Respiratory Respiratory: Present: lungs clear, normal breath sounds - Cardiovascular Cardiovascular: Present: regular rate, normal S1, normal S2 Extremities: Present: no peripheral edema bilatateraly, no clubbing, cyanosis, no inflammation - Gastrointestinal Gastrointestinal: Present: normoactive bowel sounds, soft, non-tender - Integumentary Integumentary: Present: normal - Musculoskeletal Musculoskeletal: Present: no fluid collection, no pain, normal range of motion - Psychiatric Psychiatric: Present: mood/affect appropriate Results - Laboratory Findings CBC and BMP: 03/17/19 12:38 03/17/19 12:38 Abnormal Lab Findings: Abnormal Labs 03/17/19 03/17/19 03/17/19 12:16 12:34 12:38 RBC 5.83 H Hgb 16.9 H Hct 49.6 H Lymph % (Auto) 35.8 H [place] % (Auto) 9.1 H PT Creatinine Glucose POC Glucose 284 H 285 H Hemoglobin A1c Triglycerides Cholesterol LDL Cholesterol Direct 03/17/19 03/17/19 03/17/19 12:38 12:38 14:23 RBC Hgb Hct Lymph % (Auto) [place] % (Auto) PT 11.7 L Creatinine 0.7 L Glucose 281 H POC Glucose Hemoglobin A1c Triglycerides 179 H Cholesterol 243 H LDL Cholesterol Direct 178 H 03/17/19 03/18/19 03/18/19 18:23 00:00 06:11 RBC Hgb Hct Lymph % (Auto) [place] % (Auto) PT Creatinine Glucose POC Glucose 334 H 270 H 234 H Hemoglobin A1c Triglycerides Cholesterol LDL Cholesterol Direct 03/18/19 03/18/19 03/18/19 11:16 14:48 17:17 RBC Hgb Hct Lymph % (Auto) [place] % (Auto) PT Creatinine Glucose POC Glucose 229 H 160 H Hemoglobin A1c 10.6 H Triglycerides Cholesterol LDL Cholesterol Direct Assessment and Plan Patient is a 44 y/o man w/ a h/o HTN, HLD, DM, who p/w Rt. facial weakness. According to the patient's clinical findings, he likely has right facial nerve palsy. Plan: 1. Right Facial Nerve Palsy: - MRI brain did not show any evidence of acute infarct - Recommend for patient to be started on Valacyclovir 500mg TID for 7 days. - Recommend prednisone 80mg daily for 7 days, followed by a decrease in dose by 10mg per day for 7 days. - Recommend for patient to follow up with neurology as outpatient in 2-3 weeks. - Discussed in detail with patient and family regarding diagnosis, imaging findings, treatment options, and prognosis. Also discussed side effects of medication, including elevated blood glucose with prednisone. - Will sign off as neurologic investigations are complete, and treatment plan is in place. Please call with any questions. Thank you for allowing me to take part in the care of this patient. Harris Alcantara MD Neurology
[2019-03-18] MEDS ORDERED: INSULIN GLARGINE 100 UNITS/ML SUB-Q SCH (22:00)
== END 2019-03-18 18:00 | disposition home or self-care (01) ==
LOC: ED 12:03 → 3A 15:16
PROVIDERS: ADMIT Internal Medicine; ATTEND Internal Medicine
DX: I63.9 Cerebral infarction, unspecified (principal); G51.0 Bell's palsy; I10 Essential (primary) hypertension; E78.00 Pure hypercholesterolemia, unspecified; E11.9 Type 2 diabetes mellitus without complications; Z79.82 Long term (current) use of aspirin; Z79.84 Long term (current) use of oral hypoglycemic drugs
CPT/HCPCS: 36415; 70450; 70544; 70551; 80048; 80061; 82962; 83036; 84484; 85025; 85610; 85670; 85730; 93005; 93010; 93306; 93880; 96372; 96374; 96376; 97116; 97161; 97165; 99291; A9270; G0378; J2920; J1815